=== PATIENT | male | born 1995 | race Two or more races ===

== ENCOUNTER 2025-05-20 19:06 | Inpatient (IN) | payer MEDICAID, SELFPAY ==
[2025-05-20 19:07] VITALS: BMI 37.8
[2025-05-20 19:47] VITALS: BP 162/109; PULSE 88; RESP 20; TEMP 36.9; O2SAT 95
--- NOTE | 2025-05-20 19:53 | XR_ITS ---
Examination: CT maxillofacial, with contrast 2-D sagittal and coronal reconstructions. 3-D reconstructions Date and time of exam:May 20, 20252052 hours INDICATIONS: Orbital redness swelling and pain 1 week CTDI: vol (mGy):35.9 DLP: (mGycm): 840 Technique: Multiple axial images maxillofacial region, 3.0 mm slice thickness, post intravenous injection 50 cc Isovue 370. 2-D sagittal coronal reconstructions. 3-D reconstructions Low dose protocols were performed. One or more of the following dose reduction techniques were used; automated exposure control, adjustment of the mA and/or KV according to patient size, use of iterative reconstruction technique. Findings: Soft tissue swelling medial to the right nasal bone and anterior to the right optic globe The optic globes appear intact with no retro-orbital abscess or contusion Mucosal thickening in the nasal airway Soft tissue swelling anterior to the maxillary antrum and mandible but no abscess Right maxillary ethmoid sinus disease IMPRESSION: Extensive facial cellulitis pattern, no dave abscess
[2025-05-20 20:08] LABS: Basophils # (Auto) 0.1 Thou/mm3 (0.0-0.2); Basophils % (Auto) 1 % (0-2.5); Eosinophils # (Auto) 0.2 Thou/mm3 (0.0-0.5); Eosinophils % (Auto) 1 % (0-10); Hematocrit 41.8 % (41.0-53.0); Hemoglobin 14.4 g/dL (13.5-16.0); Immature Granulocytes Auto 0.06 Thou/mm3 (0.00-0.00); Lymphocytes # (Auto) 3.1 Thou/mm3 (1.0-4.8); Lymphocytes % (Auto) 18 % (10-50); Mean Corpuscular HGB Conc 34.4 g/dl (31.0-37.0); Mean Corpuscular Hemoglobin 30.3 pg (25.0-35.0); Mean Corpuscular Volume 88 fL (80-100); Monocytes # (Auto) 1.0 Thou/mm3 (0.0-0.8); Monocytes % (Auto) 6 % (0-12); Neutrophils # (Auto) 12.7 Thou/mm3 (1.8-7.7); Neutrophils % (Auto) 74 % (37-80); Nucleated Red Blood Cell # 0.00 Thou/mm3 (0.00-0.00); Nucleated Red Blood Cell % 0 /100 WBC (0); Platelet Count 310 Thou/mm3 (140-440); RDW Standard Deviation 41.7 fL (35.1-43.9); Red Blood Count 4.76 Miln/mm3 (4.50-5.90); White Blood Count 17.2 Thou/mm3 (3.8-10.6)
--- NOTE | 2025-05-20 20:12 | PD.EDDENTL ---
ED Dental RME/HPI General Chief complaint: Dental/Oral/Throat Stated complaint: R UPPER JAW PAIN Time Seen by Provider: 05/20/25 19:52 Arrival date/time: 05/20/25 19:06 30M with history of drug use (marijuana; cocaine 1 month ago) presents to ED with R facial/dental swelling/pain. Patient states the swelling was bad enough, where he had some R blurry vision earlier today. Patient denies AMS, seizures, N/V, and dizziness. Limitations: no limitations Related Data Home Medications ?Medication ?Instructions ?Recorded ?Confirmed No Known Home Medications 09/05/22 09/05/22 Allergies Allergy/AdvReac Type Severity Reaction Status Date / Time ampicillin (From AdvReac Severe Anaphylaxis Verified 05/20/25 21:07 ampicillin-sulbactam) sulbactam (From AdvReac Severe Anaphylaxis Verified 05/20/25 21:07 ampicillin-sulbactam) Review of Systems Review of Systems Systems Reviewed: All systems reviewed, normal except as documented Constitutional Constitutional: Reports system reviewed and no additional complaints, except as documented, Denies fever(s) and Denies headache(s) Eyes Eyes: Reports as per HPI and Reports blurry vision ENT Ears, Nose, Mouth, and Throat: Reports as per HPI, Reports dental pain, Denies disequilibrium, Reports facial pain and Denies headache(s) Cardiovascular Cardiovascular: Reports system reviewed and no additional complaints, except as documented, Denies chest pain and Denies dyspnea Respiratory Respiratory: Reports system reviewed and no additional complaints, except as documented, Denies cough and Denies dyspnea Gastrointestinal Gastrointestinal: Reports system reviewed and no additional complaints, except as documented, Denies abdominal pain, Denies nausea and Denies vomiting Neurologic Neurologic: Reports system reviewed and no additional complaints, except as documented, Denies confusion, Denies disequilibrium and Denies headache(s) Psychiatric Psychiatric: Denies confusion Past Medical History Past Medical History CARDIAC: Negative Congestive Heart Failure RESPIRATORY: Negative Chronic Obstructive Pulmonary Disease (COPD) GENITOURINARY: Negative Renal Disease ENDOCRINE: Negative Diabetes Mellitus Type 1 or Diabetes Mellitus Type 2 PSYCHO/SOCIAL: Positive Depression and Anxiety Social History SMOKING STATUS: Current every day smoker ED Exam General Limitations: Present no limitations General appearance: Present alert and in no apparent distress Head Head exam: Present atraumatic Eye Eye exam: Present normal appearance, PERRL and EOMI ENT ENT exam: Present mucous membranes moist Expanded ENT Exam External ear exam: Present other (R facial swelling/tenderness) Neck Neck exam: Present normal inspection, full ROM and trachea midline Chest Chest inspection: Present normal inspection and symmetric chest wall rise Respiratory Respiratory exam: Present normal lung sounds bilaterally Cardiovascular Cardiovascular exam: Present regular rate, normal rhythm and normal heart sounds Abdominal Exam Abdominal exam: Present soft and normal bowel sounds Extremities Exam Extremities exam: Present normal inspection and full ROM Back Exam Back exam: Present normal inspection and full ROM Neurological Exam Neurological exam: Present alert, oriented X3 and CN II-XII intact Psychiatric Psychiatric exam: Present normal affect and normal mood Skin Skin exam: Present warm, dry, intact and normal color Course Quality Measures none Orders Category Date Time Status COVID-19 Screening Questionnaire NOW Care 05/20/25 22:[address] Screening NOW Care 05/20/25 19:53 Active Decision to Admit X1 Care 05/20/25 22:30 Completed Insert IV NOW Care 05/20/25 19:[address] facial bones w con Stat Exams 05/20/25 19:53 Completed CBC Stat Lab 05/20/25 20:00 Completed CMP [Comprehensive Metabolic Panel] Stat Lab 05/20/25 20:00 Completed CRP [C-Reactive Protein] Stat Lab 05/20/25 20:00 Completed ESR [Sed Rate (ESR)] Stat Lab 05/20/25 20:00 Completed Ampicillin/Sulbac Inj [Unasyn Inj] 3 gm Med 05/20/25 19:57 Discontinued Sodium Chloride 0.9% (Pop) [NS 0.9% mini bag] 100 ml IV X1 Dexamethasone Inj [Decadron Inj] Med 05/20/25 19:53 Discontinued 10 mg IVP X1 ONE DiphenhydrAMINE INJ [Benadryl Inj] Med 05/20/25 20:46 Discontinued 50 mg IVP X1 ONE EPINEPHrine Inj Abboject Med 05/20/25 20:55 Discontinued 1 mg .ROUTE .STK-MED ONE EPINEPHrine Inj [Adrenalin Inj] Med 05/20/25 20:56 Discontinued 1 mg .ROUTE .STK-MED ONE EPINEPHrine Inj [Adrenalin Inj] Med 05/20/25 20:58 Discontinued 1 mg IM X1 ONE Famotidine Inj [Pepcid Inj] Med 05/20/25 21:03 Discontinued 20 mg IVP X1 ONE Ketorolac Inj [Toradol Inj] Med 05/20/25 20:20 Discontinued 30 mg IVP X1 ONE MethylPREDNISolone.* [SoluMEDROL Inj] Med 05/20/25 21:12 Discontinued 125 mg IVP X1 ONE Sodium Chloride 0.9% 1000 ml [Ns] 1,000 ml Med 05/20/25 21:03 Discontinued IV 999 mls/hr Oxygen Delivery NOW RT 05/20/25 21:03 Active Vital Signs Vital signs: Vital Signs Temperature 98.5 F 05/20/25 19:47 Pulse Rate 88 05/20/25 19:47 Respiratory Rate 20 05/20/25 19:47 Blood Pressure 162/109 H 05/20/25 19:47 Pulse Oximetry (%) 95 05/20/25 19:47 Oxygen Delivery Method Room Air 05/20/25 19:47 O2 at 95% on RA and WNLs Dental / Oral MDM Narrative MDM Narrative:: 30M with history of drug use (marijuana; cocaine 1 month ago) presents to ED with R facial/dental swelling/pain. Patient states the swelling was bad enough, where he had some R blurry vision earlier today. Patient denies AMS, seizures, N/V, and dizziness. Physical exam reveals normal pupil response and EOM. CN II-XII grossly intact. Speech normal. R facial swelling/tenderness, as well as some R lower orbital tenderness. Patient is afebrile, calm, and alert. Moderate leukocytosis. CMP unremarkable. CRP/ESR mildly elevated. After been given Unasyn, patient had an anaphylactic reaction. Patient was stabilized with epi, steroids, and benadryl. CT reveals extensive facial cellulitis including preseptal region. Spoke to IM resident who reports to Dr. Hunter who will accept patient for admission. Patient data External records reviewed:: [facility] previous records Clinical information provided by:: patient Social determinants that could affect healthcare access:: substance use Patient has the following chronic illnesses:: drug use How is presenting disease/condition affected by chronic disease/condition?: exacerbated by Evaluation data The following diagnostics were reviewed and interpreted by me:: lab results and radiology exam(s) Lab and/or radiology exams considered but not ordered:: ordered Interpretation Summary: above Medications / Prescriptions Medications or Prescriptions considered but not ordered:: ordered Medication administrations:: Medication Administration History Acetaminophen (Acetaminophen 325 Mg Tablet) 650 mg PO Q6H PRN PRN Reason: PAIN SCALE 1-3 (mild Stop: 06/19/25 22:52 Chlordiazepoxide HCl (Chlordiazepoxide Hcl 25 Mg Capsule) 50 mg PO Q6HR PRN PRN Reason: CIWA> 9 Stop: 05/24/25 00:12 Folic Acid (Folic Acid 1 Mg Tablet) 1 mg PO QDAY [facility] Stop: 06/20/25 08:59 Heparin Sodium (Porcine) (Heparin Sod Inj 5000 Unit/Ml Vial) 5,000 unit SC Q12HR [facility] Stop: 06/04/25 08:59 Levofloxacin/Dextrose (Levaquin Ivpb) 750 mg in 150 mls @ 100 mls/hr IV QDAY [facility] Stop: 05/28/25 08:59 Ketorolac Tromethamine (Ketorolac Inj 30 Mg/Ml Vial) 30 mg IVP Q6HR PRN PRN Reason: Pain 4-6 Stop: 05/25/25 23:03 Lorazepam (Lorazepam 0.5 Mg Tablet) 0.5 mg PO Q4HR PRN PRN Reason: CIWA Score 2-6 Stop: 05/26/25 00:11 Lorazepam (Lorazepam 0.5 Mg Tablet) 1 mg PO Q4HR PRN PRN Reason: CIWA SCORE 7-11 Stop: 05/26/25 00:11 Lorazepam (Lorazepam 0.5 Mg Tablet) 2 mg PO Q4HR PRN PRN Reason: CIWA SCORE 12-15 Stop: 05/26/25 00:11 Ondansetron HCl (Ondansetron Inj 2 Mg/Ml Inj 2 Ml) 4 mg IVP Q6H PRN; Protocol PRN Reason: NAUSEA OR VOMITING Stop: 06/19/25 22:52 Thiamine HCl (Thiamine 100 Mg Tablet) 100 mg PO QDAY [facility] Stop: 06/20/25 08:59 Discontinued Medications Dexamethasone Sodium Phosphate (Dexamethasone Sod Phos Inj 10 Mg/Ml Vial) 10 mg IVP X1 ONE Stop: 05/20/25 19:54 Last Admin: 05/20/25 20:25 Dose: 10 mg Documented By: LAUREN Diphenhydramine HCl (Diphenhydramine Inj 50 Mg/Ml Vial) 50 mg IVP X1 ONE Stop: 05/20/25 20:47 Last Admin: 05/20/25 21:02 Dose: 50 mg Documented By: MARYJANE Epinephrine HCl (Epinephrine Inj 1 Mg/Ml Amp) 1 mg IM X1 ONE Stop: 05/20/25 20:59 Last Admin: 05/20/25 21:03 Dose: 1 mg Documented By: MARYJANE Epinephrine HCl (Epinephrine Inj 0.1 Mg/Ml Syringe 10ml) Confirm Administered Dose 1 mg .ROUTE .STK-MED ONE Stop: 05/20/25 20:56 Last Admin: 05/20/25 21:08 Dose: Not Given Documented By: MARYJANE Non-Admin Reason: Override Medication Epinephrine HCl (Epinephrine Inj 1 Mg/Ml Amp) Confirm Administered Dose 1 mg .ROUTE .STK-MED ONE Stop: 05/20/25 20:57 Last Admin: 05/20/25 21:08 Dose: Not Given Documented By: MARYJANE Non-Admin Reason: Override Medication Famotidine (Famotidine Inj 10 Mg/Ml Vial 2 Ml) 20 mg IVP X1 ONE Stop: 05/20/25 21:04 Last Admin: 05/20/25 21:13 Dose: 20 mg Documented By: MARYJANE Ampicillin Sodium/Sulbactam (Sodium 3 gm/ Sodium Chloride) 100 mls @ 200 mls/hr IV X1 ONE Stop: 05/20/25 19:58 Last Infusion: 05/20/25 20:54 Dose: Infused Documented By: Admin: 05/20/25 20:24 Dose: 200 mls/hr Documented By: LAUREN Sodium Chloride (Ns) 1,000 mls @ 999 mls/hr IV .Q1H1M ONE Stop: 05/20/25 22:03 Last Infusion: 05/20/25 23:46 Dose: Infused Documented By: Admin: 05/20/25 21:10 Dose: 999 mls/hr Documented By: MARYJANE Ketorolac Tromethamine (Ketorolac Inj 30 Mg/Ml Vial) 30 mg IVP X1 ONE Stop: 05/20/25 20:21 Last Admin: 05/20/25 20:26 Dose: 30 mg Documented By: LAUREN Methylprednisolone Sodium Succinate (Methylprednisolone Sod Succ 62.5 Mg/Ml 2ml Vial) 125 mg IVP X1 ONE Stop: 05/20/25 21:13 Last Admin: 05/20/25 21:17 Dose: 125 mg Documented By: MARYJANE above Consultations Consultation(s) initiated? (list below): Yes Diagnosis Dental Differential Diagnosis: gingival abscess, dental caries, toothache, dental abscess, fracture of tooth, aphthous ulcer and other (orbital cellulitis, periorbital cellulitis) Most likely diagnosis given after review of the tests above:: preseptal cellulitis, anaphylaxis Admission Indicated Admission indicated?: indicated Admission Request Was there a request for admission?: Yes Admission Attestation Admission request attestation: Discussed case with [Dr. Hunter] from Hospitalist service regarding admission. Discussed patients ED course, exam findings, labs, and radiology results. The Hospitalist [agrees] to accept the patient for admission. Disposition Plan Disposition Plan: Admit Discharge Plan Plan Patient Disposition: Admit Acute Care w/in Hospital Discharge Disposition comment: MED TELE Problem List Clinical Impression: Preseptal cellulitis, Anaphylactic reaction
[2025-05-20] MEDS: AMPICILLIN/SULBAC INJ 3 GM in SODIUM CHLORIDE 0.9% (POP) 100 ML IV (20:24)
[2025-05-20] MEDS: DEXAMETHASONE SOD PHOS INJ 10 MG/ML VIAL IVP (20:25)
[2025-05-20] MEDS: KETOROLAC INJ 30 MG/ML VIAL IVP (20:26)
[2025-05-20 20:32] LABS: Alanine Aminotransferase 28 U/L (10-49); Albumin, Serum 4.9 gm/dL (3.5-5.0); Albumin/Globulin Ratio 1.5 (1.2-2.2); Alkaline Phosphatase 98 U/L (46-116); Anion Gap 6 (7-16); Aspartate Amino Transferase 24 U/L (0-34); BUN/Creatinine Ratio 8 Ratio (12-20); Bilirubin,Total 0.2 mg/dL (0.3-1.2); Blood Urea Nitrogen 9 mg/dL (9-23); C-Reactive Protein 2.2 mg/dL (0.0-0.9); Calcium 9.3 mg/dL (8.3-10.6); Calcium (Corrected) 9.3 mg/dL (8.5-10.1); Carbon Dioxide 28.1 mMol/L (20.0-31.0); Chloride 105 mMol/L (98-107); Creatinine (Component) 1.1 mg/dL (0.6-1.3); Estimated Creatinine Clearance 124.5 mL/min (>60); Globulin 3.3 gm/dL (2.3-3.5); Glucose 99 mg/dL (74-106); Osmolality,Calculated 276 (275-295); Potassium 4.1 mMol/L (3.4-5.1); Sodium 139 mMol/L (136-145); Total Protein 8.2 gm/dL (5.7-8.2); eGFR > 60 See Note
[2025-05-20 20:35] LABS: Sed Rate (ESR) 40 mm/hr (0-15)
[2025-05-20 20:51] VITALS: PULSE 254; O2SAT 80
[2025-05-20 21:03] VITALS: BP 146/7; PULSE 125
[2025-05-20] MEDS: EPINEPHrine INJ 1 MG/ML AMP IM (21:03)
--- NOTE | 2025-05-20 21:05 | PC.NURSE ---
Upon administration of unasyn, pt denied any known allergies. Pt began to develop swelling to lower lip at end of infusion. Provider made aware by Carol. Pt's swelling continued to progress. Pt moved to main ER to be given Epi.
[2025-05-20] MEDS: SODIUM CHLORIDE 0.9% 1000 ML 1,000 ML 999 ML IV (21:10)
[2025-05-20] MEDS: FAMOTIDINE INJ 10 MG/ML VIAL 2 ML 20 MG IVP (21:13)
[2025-05-20] MEDS: MethylPREDNISolone SOD SUCC 62.5 MG/ML 2ML VIAL 125 MG IVP (21:17)
[2025-05-20 21:20] VITALS: BP 146/72; PULSE 96; RESP 20; O2SAT 99
[2025-05-20 21:48] VITALS: BP 145/79; PULSE 90; RESP 18; O2SAT 98
[2025-05-20 22:01] VITALS: BP 136/82; PULSE 87; RESP 17; O2SAT 99
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
[2025-05-21] VITALS (8 sets, daily range): BP systolic 102–138; BP diastolic 68–102; PULSE 57–87; RESP 14–19; TEMP 35.9–36.8; O2SAT 94–99; BMI 38.2
[2025-05-21 01:31] LABS: Amphetamine/Methamp Scrn,U Negative (Negative); Barbiturate Screen,Urine Negative (Negative); Benzodiazepines Screen,Urine Negative (Negative); Benzoylecgonine Screen, Ur Negative (Negative); Fentanyl Screen,Urine Negative (Negative); Opiate Screen,Urine Negative (Negative); THC Screen,Urine Positive (Negative)
[2025-05-21 04:59] LABS: Basophils # (Auto) 0.0 Thou/mm3 (0.0-0.2); Basophils % (Auto) 0 % (0-2.5); Eosinophils # (Auto) 0.0 Thou/mm3 (0.0-0.5); Eosinophils % (Auto) 0 % (0-10); Hematocrit 39.6 % (41.0-53.0); Hemoglobin 13.6 g/dL (13.5-16.0); Immature Granulocytes Auto 0.07 Thou/mm3 (0.00-0.00); Lymphocytes # (Auto) 0.8 Thou/mm3 (1.0-4.8); Lymphocytes % (Auto) 6 % (10-50); Mean Corpuscular HGB Conc 34.3 g/dl (31.0-37.0); Mean Corpuscular Hemoglobin 30.4 pg (25.0-35.0); Mean Corpuscular Volume 89 fL (80-100); Monocytes # (Auto) 0.1 Thou/mm3 (0.0-0.8); Monocytes % (Auto) 1 % (0-12); Neutrophils # (Auto) 13.1 Thou/mm3 (1.8-7.7); Neutrophils % (Auto) 93 % (37-80); Nucleated Red Blood Cell # 0.00 Thou/mm3 (0.00-0.00); Nucleated Red Blood Cell % 0 /100 WBC (0); Platelet Count 284 Thou/mm3 (140-440); RDW Standard Deviation 42.6 fL (35.1-43.9); Red Blood Count 4.47 Miln/mm3 (4.50-5.90); White Blood Count 14.1 Thou/mm3 (3.8-10.6)
[2025-05-21 06:01] LABS: Anion Gap 6 (7-16); BUN/Creatinine Ratio 8 Ratio (12-20); Blood Urea Nitrogen 8 mg/dL (9-23); Calcium 9.3 mg/dL (8.3-10.6); Carbon Dioxide 23.6 mMol/L (20.0-31.0); Cardiac Risk Estimate 3.5 RATIO (4.0-6.7); Chloride 111 mMol/L (98-107); Cholesterol 181 mg/dL (132-200); Creatinine (Component) 1.0 mg/dL (0.6-1.3); Estimated Creatinine Clearance 137.9 mL/min (>60); Glucose 151 mg/dL (74-106); HDL Cholesterol 51 mg/dL (40-60); LDL Cholesterol,Calculated 120 mg/dL (0-130); Magnesium 1.6 mg/dL (1.6-2.6); Osmolality,Calculated 282 (275-295); Potassium 3.7 mMol/L (3.4-5.1); Sodium 141 mMol/L (136-145); Triglycerides 49 mg/dL (30-150); eGFR > 60 See Note
[2025-05-21 06:20] LABS: Phosphorous 0.7 mg/dL (2.4-5.1)
[2025-05-21 06:37] LABS: Glucose Estimated Average 108 mg/dL (80-131); Hemoglobin A1C 5.4 % Hgb (4.8-6.0)
--- NOTE | 2025-05-21 07:40 | ESPR_ITS ---
<Statement entered by Any Stanton MD - 05/22/25 16:39> I have reviewed the note and agree with the resident's assessment & plan with exceptions as below. I have personally reviewed labs, imaging, home meds/prior records, examined the patient, formulated and discussed management plan with the IM team. Patient examined at bedside today. Patient continues to improve with pain, no fevers overnight. Will add vancomycin at this time to cover for MRSA and will also add MRSA screen and will de-escalate MRSA coverage once it results. Continuing with IV Levaquin as well. Patient does have some history of dental procedures in the past, will hold off on anaerobic coverage at this time. Continue with antipyretics, IV antibiotics, will hold off and infectious disease consult at this time. Dissipate discharge within the next 24 to 48 hours. Any Stanton, PGY-2 Internal Medicine Documentation for date of: 05/21/25 Subjective Subjective Interval history: Patient was examined at bedside this morning. Today, patient reports he is overall feeling better. He notes that pain is only present if he applies pressure under the eyes. He denies any more episodes of blurry vision. Denies pain with eye movement. He does note a sensation of generalized heaviness after waking up this morning, including the upper extremities bilaterally. However, noted that it has gradually improved over the last few hours. He denies any other concerns at this time. Exam Vital Signs Temp Pulse Resp BP Pulse Ox O2 Del Method O2 Flow Rate 96.7 F L 57 L 15 106/68 95 Room Air 2 05/21/25 04:00 05/21/25 04:00 05/21/25 04:00 05/21/25 04:00 05/21/25 04:00 05/21/25 04:00 05/20/25 22:01 Narrative Exam GENERAL: A&OX3. No acute distress. HEENT: Normocephalic. No scleral icterus. EOMI. No periorbital erythema or swelling present at this time. CV: Regular rate and rhythm. S1 and S2 heard. No murmurs. PULM: No accessory muscle use. CTAB. No wheezing or crackles. ABDOMEN: Soft and non-distended. EXTREMITIES: No lower extremity edema. NEURO: No aphasia. No facial asymmetry. Sensation to upper and lower face present bilaterally, but slightly decreased on right forehead compared to left. Equal sensation bilaterally of upper and lower extremities. Patient able to move bilateral upper extremities, shoulders, and left lower extremity against resistance. Weakness of right lower extremity secondary to history of knee surgery, but at baseline per patient. SKIN: Warm and dry. PSYCH: Cooperative with exam. Detailed Eye Exam Visual acuity: Visual Acuity Visual Acuity Uncorrected [ 20/50 Bilateral] Visual Acuity Uncorrected [ 20/70 Right] Visual Acuity Uncorrected [ 20/70 Left] Objective Labs 05/23/25 04:15 05/23/25 04:15 Labs: Laboratory Results - last 24 hr 05/20/25 05/21/25 05/21/25 20:00 00:49 04:29 WBC 17.2 H 14.1 H RBC 4.76 4.47 L Hgb 14.4 13.6 Hct 41.8 39.6 L MCV 88 89 MCH 30.3 30.4 MCHC 34.4 34.3 RDW Std Deviation 41.7 42.6 Plt Count 310 284 Neut % (Auto) 74 93 H Lymph % (Auto) 18 6 L [place] % (Auto) 6 1 Eos % (Auto) 1 0 Baso % (Auto) 1 0 Neut # (Auto) 12.7 H 13.1 H Lymph # (Auto) 3.1 0.8 L [place] # (Auto) 1.0 H 0.1 Eos # (Auto) 0.2 0.0 Baso # (Auto) 0.1 0.0 Immature Gran # (Auto) 0.06 H 0.07 H Absolute Nucleated RBC 0.00 0.00 Immature Gran % 0 1 H Nucleated RBC % 0 0 ESR 40 H Sodium 139 141 Potassium 4.1 3.7 Chloride 105 111 H Carbon Dioxide 28.1 23.6 Anion Gap 6 L 6 L BUN 9 8 L Creatinine 1.1 1.0 Estim Creat Clear Calc 124.5 137.9 eGFR > 60 > 60 BUN/Creatinine Ratio 8 L 8 L Glucose [address] Glu mg/dL 108 Hemoglobin A1c 5.4 Calculated Osmolality 276 282 Calcium 9.3 9.3 Corrected Calcium 9.3 Phosphorus 0.7 L* Magnesium 1.6 Total Bilirubin 0.2 L AST 24 ALT 28 Alkaline Phosphatase 98 C-Reactive Prot, Quant 2.2 H Total Protein 8.2 Albumin 4.9 Globulin 3.3 Albumin/Globulin Ratio 1.5 Triglycerides 49 Cholesterol 181 LDL Cholesterol, Calc 120 HDL Cholesterol 51 Cholesterol/HDL Ratio 3.5 L Urine Opiates Screen Negative Urine Fentanyl Screen Negative Ur Barbiturates Screen Negative U Amphetamin/Meth Scrn Negative U Benzodiazepines Scrn Negative U Cocaine Metab Screen Negative U Marijuana (THC) Screen Positive A Quality Measures Quality Measures none Assessment & Plan Assessment Current Active Medications: Generic Name Dose Route Start Last Admin Trade Name Freq PRN Reason Stop Dose Admin Acetaminophen 650 mg 05/20/25 22:53 Acetaminophen 325 Mg Tablet PO 06/19/25 22:52 Q6H PRN PAIN SCALE 1-3 (mild Folic Acid 1 mg 05/21/25 09:00 Folic Acid 1 Mg Tablet PO 06/20/25 08:59 QDAY CECIL Heparin Sodium (Porcine) 5,000 unit 05/21/25 09:00 Heparin Sod Inj 5000 Unit/Ml Vial SC 06/04/25 08:59 Q12HR CECIL Levofloxacin/Dextrose 750 mg in 150 mls @ 100 mls/hr 05/21/25 09:00 Levaquin Ivpb IV 05/28/25 08:59 QDAY CECIL Potassium Phosphate 15 mmol in 250 mls @ 62.5 mls/hr 05/21/25 07:00 Pot Phos 15 Mmol In Ns 250 Ml IV 05/21/25 14:59 Q4H CECIL Ketorolac Tromethamine 30 mg 05/20/25 23:04 Ketorolac Inj 30 Mg/Ml Vial IVP 05/25/25 23:03 Q6HR PRN Pain 4-6 Lorazepam 0.5 mg 05/21/25 00:12 Lorazepam 0.5 Mg Tablet PO 05/26/25 00:11 Q4HR PRN CIWA Score 2-6 Lorazepam 1 mg 05/21/25 00:12 Lorazepam 0.5 Mg Tablet PO 05/26/25 00:11 Q4HR PRN CIWA SCORE 7-11 Lorazepam 2 mg 05/21/25 00:12 Lorazepam 0.5 Mg Tablet PO 05/26/25 00:11 Q4HR PRN CIWA SCORE 12-15 Ondansetron HCl 4 mg 05/20/25 22:53 Ondansetron Inj 2 Mg/Ml Inj 2 Ml IVP 06/19/25 22:52 Q6H PRN NAUSEA OR VOMITING Protocol Thiamine HCl 100 mg 05/21/25 09:00 Thiamine 100 Mg Tablet PO 06/20/25 08:59 QDAY CECIL Plan Assessment 30-year-old male with past medical history of polysubstance use disorder, alcohol use disorder, morbid obesity presenting to the ED on 05/20 with episode of facial pain along with blurriness will be admitted for the management of preseptal cellulitis and will be treated with IV antibiotics and close monitoring. #Preseptal cellulitis, improving #Leukocytosis, improvement Overall improving with IV Levaquin. In the ED, patient was given Unasyn and started developing anaphylactoid reaction, epinephrine, steroid and Benadryl was given which subsided reaction. There is less concern for orbital cellulitis as there is no persistent visual changes, pain with eye movement or exudation/erythema. Could be 2/2 to cocaine use. Could also be associated with poor dentition resulting in infection. Patient had denied any recent facial or eye trauma. WBC of 17.2 initially. 14.[address] shows extensive facial cellulitis pattern with no dave abscess, soft tissue swelling medial to the right nasal bone and anterior to the right optic globe, no retro-orbital abscess is noted, soft tissue swelling anterior to the maxillary antrum and mandible along with right maxillary ethmoid sinus disease. Plan: - IV Levaquin as patient is allergic to penicillins. Plan to switch to Levaquin 500 mg po QD at discharge. - Added vancomycin for MRSA coverage, pending rule out. - Monitor for any acute changes in vision or pain #Generalized Weakness #Hypophosphatemia, improving Suspect generalized heavy sensation to be secondary to hypophosphatemia. Less concern for stroke, given symptoms have been gradually improving since this morning and exam overall unremarkable, except for slight decrease in sensation of right forehead compared to left. Sensation of lower face and extremities otherwise present and equal bilaterally. No obvious weakness of upper extremities or shoulders on exam. Plan: - Will replete phosphate as needed. - Check vitamin D level for workup of hypophosphatemia. #Polysubstance use disorder #Alcohol use disorder Urine tox screen positive for marijuana and alcohol. Per patient, last alcoholic drink was on Sunday. CIWA score of 0 today and patient without symptoms of alcohol withdrawal. Patient admits to using marijuana daily, drinking 12 packs on Fridays. Possible cocaine use per ED provider, but negative on tox screen. Plan: - CIWA protocol - Thiamine and folic acid supplementation - Counseled on complete cessation from illicit drugs and alcohol #Morbid obesity Patient has a BMI of 37.8. Has concerning family history of [place], brother had strokes x2 with first at the age of 32. Lipid panel was unremarkable. A1c 5.4%. Plan: - Counseled on proper nutrition and diet exercise #Nicotine dependence Patient smokes 1 pack a day for the past 12 years. Discussed smoking cessation and offered nicotine patch, but patient declined at this time. Health Maintenance: Lines: PIV Diet: Cardiac Bowel: Senna as needed GI prophylaxis: Not needed DVT prophylaxis: SCD Dispo: IV antibiotics for preseptal cellulitis Code: Full Patient seen and care discussed with my attending physician, Dr. Jones and my senior resident, Dr. Romy Dash, [facility] [place] Attending Provider Attestation/Addendum Admitted for facila pain and swellimg. He has discomfort which improved since admission. BP stable. No dizzinesss and no headache. Plan discussed with housestaff and medical student.
[2025-05-21] MEDS: HEPARIN SOD INJ 5000 UNIT/ML VIAL SC ×2 (08:20→20:21)
[2025-05-21] MEDS: NAPH,KPH MBDB 1 PACKET (1.5 GM) 2 PACKET PO ×2 (08:21→15:09)
[2025-05-21] MEDS: POT PHOS 15 mMol in NS 250 ML 15 MMOL/250 ML BAG 62.5 MMOL IV ×2 (08:21→11:57)
[2025-05-21] MEDS: FOLIC ACID 1 MG TABLET PO (08:21)
[2025-05-21] MEDS: THIAMINE 100 MG TABLET PO (08:21)
[2025-05-21] MEDS: LEVOFLOXACIN/D5W 750MG IVPB 750 MG/150 ML BAG 100 MG IV (08:22)
[2025-05-21] MEDS: Vancomycin Inj 1,500 MG in SODIUM CHLORIDE 0.9% 500 ML 500 ML 120 MG IV ×2 (11:57→22:24)
--- NOTE | 2025-05-21 12:57 | PD.RESDS ---
Planned Discharge Date 05/21/25 DS: Providers Provider Date of admission: 05/20/25 22:53 Primary care physician: Physician No Primary/Family Admitting Provider: Lionel Hunter MD Attending Provider on Admission: Pacheco Jones MD Attending Provider on DC: Pacheco Jones MD Discharging Provider: Pacheco Jones MD Hospital Course Hospital Course Hospital course: Patient is a 30-year-old male with past medical history of substance use disorder, alcohol use disorder, and morbid obesity who presented to the ED on 05/20 for dental and facial pain associated with intermittent blurry vision onset 05/19. He was found to have preseptal cellulitis on CT. Initially treated with Unasyn in ED but developed anaphylactic reaction, so switched to Levaquin 750 mg IV. He was then admitted for treatment of facial cellulitis. Today, patient reports he is overall feeling better. He notes that pain is only present if he applies pressure under the eyes. He denies any more episodes of blurry vision. Denies pain with eye movement. He does note a sensation of generalized heaviness after waking up this morning, including the upper extremities bilaterally. However, noted that it has gradually improved over the last few hours. Also discussed smoking cessation with patient, but patient declined at this time. He denies any other concerns at this time. Patient is stable at time of discharge. Will discharge patient with Discharge instructions: #Problem List #Preseptal cellulitis #Leukocytosis #Hypophosphatemia #Polysubstance use disorder #Alcohol use disorder #Morbid obesity #Nicotine dependence Case discussed with my attending Dr. Jones, and senior resident, Dr. Romy Dash, OMS4 Time Spent with Patient Time attestation: Total time spent providing and/or coordinating discharge services: Time spent: Greater than 30 minutes Exam Vital Signs Temp Pulse Resp BP Pulse Ox O2 Del Method O2 Flow Rate 97.2 F 66 14 118/71 99 Room Air 2 05/21/25 08:00 05/21/25 08:00 05/21/25 08:00 05/21/25 08:00 05/21/25 08:00 05/21/25 08:00 05/20/25 22:01 Narrative Exam GENERAL: A&OX3. No acute distress. HEENT: Normocephalic. No scleral icterus. EOMI. No periorbital erythema present. CV: Regular rate and rhythm. S1 and S2 heard. No murmurs. PULM: No accessory muscle use. CTAB. No wheezing or crackles. ABDOMEN: Soft and non-distended. EXTREMITIES: No lower extremity edema. NEURO: No aphasia. No facial asymmetry. Sensation to upper and lower face present bilaterally, but slightly decreased on right forehead compared to left. Equal sensation bilaterally of upper and lower extremities. Patient able to move bilateral upper extremities, shoulders, and left lower extremity against resistance. Weakness of right lower extremity secondary to history of knee surgery. SKIN: Warm and dry. PSYCH: Cooperative with exam. Detailed Eye Exam Visual acuity: Visual Acuity Visual Acuity Uncorrected [ 20/50 Bilateral] Visual Acuity Uncorrected [ 20/70 Right] Visual Acuity Uncorrected [ 20/70 Left] Discharge Plan Plan Patient Disposition: HOME (Self Care) Patient condition on transfer: Stable Prescriptions/Referrals Prescriptions/Med Rec: No Action No Known Home Medications Referrals: No Primary/Family,Physician [Primary Care Provider] - Patient/Caregiver Discharge Instructions Discharge Activity: activity as tolerated Education Materials: Discharge Instructions for Cellulitis Print Language: Japanese Stand Alone Forms: Claudia Award Info., Patient Portal Info Letter
[2025-05-21 13:31] LABS: Albumin, Serum 4.3 gm/dL (3.5-5.0); Anion Gap 8 (7-16); BUN/Creatinine Ratio 10 Ratio (12-20); Blood Urea Nitrogen 9 mg/dL (9-23); Calcium 9.1 mg/dL (8.3-10.6); Calcium (Corrected) 9.1 mg/dL (8.5-10.1); Carbon Dioxide 23.7 mMol/L (20.0-31.0); Chloride 109 mMol/L (98-107); Creatinine (Component) 0.9 mg/dL (0.6-1.3); Estimated Creatinine Clearance 153.2 mL/min (>60); Glucose 128 mg/dL (74-106); Osmolality,Calculated 281 (275-295); Phosphorous 1.8 mg/dL (2.4-5.1); Potassium 4.4 mMol/L (3.4-5.1); Sodium 141 mMol/L (136-145); eGFR > 60 See Note
[2025-05-21 20:25] LABS: Albumin, Serum 4.4 gm/dL (3.5-5.0); Anion Gap 12 (7-16); BUN/Creatinine Ratio 9 Ratio (12-20); Blood Urea Nitrogen 7 mg/dL (9-23); Calcium 9.6 mg/dL (8.3-10.6); Calcium (Corrected) 9.6 mg/dL (8.5-10.1); Carbon Dioxide 22.1 mMol/L (20.0-31.0); Chloride 110 mMol/L (98-107); Creatinine (Component) 0.8 mg/dL (0.6-1.3); Estimated Creatinine Clearance 172.3 mL/min (>60); Glucose 146 mg/dL (74-106); Osmolality,Calculated 287 (275-295); Phosphorous 3.0 mg/dL (2.4-5.1); Potassium 3.7 mMol/L (3.4-5.1); Sodium 144 mMol/L (136-145); eGFR > 60 See Note
[2025-05-22] VITALS (12 sets, daily range): BP systolic 120–149; BP diastolic 72–85; PULSE 61–92; RESP 14–18; TEMP 36.1–36.5; O2SAT 98–99
[2025-05-22 06:13] LABS: Basophils # (Auto) 0.0 Thou/mm3 (0.0-0.2); Basophils % (Auto) 0 % (0-2.5); Eosinophils # (Auto) 0.0 Thou/mm3 (0.0-0.5); Eosinophils % (Auto) 0 % (0-10); Hematocrit 38.0 % (41.0-53.0); Hemoglobin 12.8 g/dL (13.5-16.0); Immature Granulocytes Auto 0.08 Thou/mm3 (0.00-0.00); Lymphocytes # (Auto) 3.0 Thou/mm3 (1.0-4.8); Lymphocytes % (Auto) 16 % (10-50); Mean Corpuscular HGB Conc 33.7 g/dl (31.0-37.0); Mean Corpuscular Hemoglobin 30.0 pg (25.0-35.0); Mean Corpuscular Volume 89 fL (80-100); Monocytes # (Auto) 1.2 Thou/mm3 (0.0-0.8); Monocytes % (Auto) 7 % (0-12); Neutrophils # (Auto) 14.2 Thou/mm3 (1.8-7.7); Neutrophils % (Auto) 77 % (37-80); Nucleated Red Blood Cell # 0.00 Thou/mm3 (0.00-0.00); Nucleated Red Blood Cell % 0 /100 WBC (0); Platelet Count 262 Thou/mm3 (140-440); RDW Standard Deviation 44.0 fL (35.1-43.9); Red Blood Count 4.27 Miln/mm3 (4.50-5.90); White Blood Count 18.5 Thou/mm3 (3.8-10.6)
[2025-05-22 06:40] LABS: Vitamin D 25 Hydroxy Total 20.7 ng/mL (7.3-40.2)
[2025-05-22 06:48] LABS: Alanine Aminotransferase 23 U/L (10-49); Albumin, Serum 4.0 gm/dL (3.5-5.0); Albumin/Globulin Ratio 1.4 (1.2-2.2); Alkaline Phosphatase 70 U/L (46-116); Anion Gap 12 (7-16); Aspartate Amino Transferase 17 U/L (0-34); BUN/Creatinine Ratio 10 Ratio (12-20); Bilirubin,Total 0.2 mg/dL (0.3-1.2); Blood Urea Nitrogen 8 mg/dL (9-23); Calcium 8.7 mg/dL (8.3-10.6); Calcium (Corrected) 8.7 mg/dL (8.5-10.1); Carbon Dioxide 23.2 mMol/L (20.0-31.0); Chloride 110 mMol/L (98-107); Creatinine (Component) 0.8 mg/dL (0.6-1.3); Estimated Creatinine Clearance 172.3 mL/min (>60); Globulin 2.9 gm/dL (2.3-3.5); Glucose 107 mg/dL (74-106); Magnesium 2.0 mg/dL (1.6-2.6); Osmolality,Calculated 287 (275-295); Phosphorous 4.1 mg/dL (2.4-5.1); Potassium 3.7 mMol/L (3.4-5.1); Sodium 145 mMol/L (136-145); Total Protein 6.9 gm/dL (5.7-8.2); eGFR > 60 See Note
[2025-05-22] MEDS: LEVOFLOXACIN/D5W 750MG IVPB 750 MG/150 ML BAG 100 MG IV (08:00)
[2025-05-22] MEDS: FOLIC ACID 1 MG TABLET PO (08:00)
[2025-05-22] MEDS: HEPARIN SOD INJ 5000 UNIT/ML VIAL SC ×2 (08:00→20:49)
[2025-05-22] MEDS: THIAMINE 100 MG TABLET PO (08:01)
[2025-05-22] MEDS: Vancomycin Inj 1,500 MG in SODIUM CHLORIDE 0.9% 500 ML 500 ML 120 MG IV ×2 (09:59→22:44)
--- NOTE | 2025-05-22 14:40 | PC.SS ---
SS met with patient who is alert/oriented. Patient was able to verify demographics. Patient is independent with ADL's. Patient was admitted for facial cellulitis. Patient states he is employed and resides with family. Patient has history of alcohol and cocaine use. Patient states he only drinks beer no hard liquor. Patient has a history of mental illness. Patient confirmed he has bipolar. He recently stopped taking his medication. PCP: Patient states he has not seen a p.c.p. in years. SS recommended the [facility] since he is not established with anyone. D/c plan: return home with family. Alt medical decision maker: mother Oden, . d/c plan: return home alt medical decision maker: mother Oden, transportation: family
--- NOTE | 2025-05-22 17:53 | ESPR_ITS ---
<Statement entered by Any Stanton MD - 05/23/25 16:09> I have reviewed the note and agree with the resident's assessment & plan with exceptions as below. I have personally reviewed labs, imaging, home meds/prior records, examined the patient, formulated and discussed management plan with the IM team. Patient examined at bedside today. Patient continues to improve. Patient continuing with vancomycin and IV Levaquin. Will follow-up with MRSA screen tomorrow which will dictate antibiotic coverage tomorrow. Repeat hematology and chemistry in AM. Any Stanton, PGY-2 Internal Medicine Documentation for date of: 05/22/25 Subjective Subjective Interval history: Patient was examined at bedside this morning. Today, patient reports he is overall feeling better. He notes that pain is only present if he applies pressure under the the right eye near the right maxilofacial sinus. He denies any more episodes of blurry vision. Denies pain with eye movement. Patient reports feeling well rested with no fatigue or weakness. He denies any other concerns at this time. Exam Vital Signs Temp Pulse Resp BP Pulse Ox O2 Del Method O2 Flow Rate 97.1 F 92 18 124/72 98 Room Air 2 05/22/25 15:43 05/22/25 16:00 05/22/25 15:43 05/22/25 15:43 05/22/25 15:43 05/22/25 15:43 05/22/25 12:00 Narrative Exam GENERAL: A&OX3. No acute distress. HEENT: Normocephalic. No scleral icterus. EOMI. No periorbital erythema or swelling present at this time. CV: Regular rate and rhythm. S1 and S2 heard. No murmurs. PULM: No accessory muscle use. CTAB. No wheezing or crackles. ABDOMEN: Soft and non-distended. EXTREMITIES: No lower extremity edema. NEURO: No aphasia. No facial asymmetry. Sensation to upper and lower face present bilaterally, but slightly decreased on right forehead compared to left. Equal sensation bilaterally of upper and lower extremities. Patient able to move bilateral upper extremities, shoulders, and left lower extremity against resistance. Weakness of right lower extremity secondary to history of knee surgery, but at baseline per patient. SKIN: Warm and dry. PSYCH: Cooperative with exam. Detailed Eye Exam Visual acuity: Visual Acuity Visual Acuity Uncorrected [ 20/50 Bilateral] Visual Acuity Uncorrected [ 20/70 Right] Visual Acuity Uncorrected [ 20/70 Left] Objective Labs 05/23/25 04:15 05/23/25 04:15 Labs: Laboratory Results - last 24 hr 05/21/25 05/22/25 19:28 06:03 WBC 18.5 H RBC 4.27 L Hgb 12.8 L Hct 38.0 L MCV 89 MCH 30.0 MCHC 33.7 RDW Std Deviation 44.0 H Plt Count 262 Neut % (Auto) 77 Lymph % (Auto) 16 [place] % (Auto) 7 Eos % (Auto) 0 Baso % (Auto) 0 Neut # (Auto) 14.2 H Lymph # (Auto) 3.0 [place] # (Auto) 1.2 H Eos # (Auto) 0.0 Baso # (Auto) 0.0 Immature Gran # (Auto) 0.08 H Absolute Nucleated RBC 0.00 Immature Gran % 0 Nucleated RBC % 0 Sodium 144 145 Potassium 3.7 D 3.7 Chloride 110 H 110 H Carbon Dioxide 22.1 23.2 Anion Gap 12 12 BUN 7 L 8 L Creatinine 0.8 0.8 Estim Creat Clear Calc 172.3 172.3 eGFR > 60 > 60 BUN/Creatinine Ratio 9 L 10 L Glucose 146 H 107 H Calculated Osmolality 287 287 Calcium 9.6 8.7 Corrected Calcium 9.6 8.7 Phosphorus 3.0 4.1 Magnesium 2.0 Total Bilirubin 0.2 L AST 17 ALT 23 Alkaline Phosphatase 70 D Total Protein 6.9 Albumin 4.4 4.0 Globulin 2.9 Albumin/Globulin Ratio 1.4 25-OH Vitamin D Total 20.7 Quality Measures Quality Measures none Assessment & Plan Assessment Current Active Medications: Generic Name Dose Route Start Last Admin Trade Name Freq PRN Reason Stop Dose Admin Acetaminophen 650 mg 05/20/25 22:53 Acetaminophen 325 Mg Tablet PO 06/19/25 22:52 Q6H PRN PAIN SCALE 1-3 (mild Folic Acid 1 mg 05/21/25 09:00 05/22/25 08:00 Folic Acid 1 Mg Tablet PO 06/20/25 08:59 1 mg QDAY CECIL Administration Heparin Sodium (Porcine) 5,000 unit 05/21/25 09:00 05/22/25 08:00 Heparin Sod Inj 5000 Unit/Ml Vial SC 06/04/25 08:59 5,000 unit Q12HR CECIL Administration Levofloxacin/Dextrose 750 mg in 150 mls @ 100 mls/hr 05/21/25 09:00 05/22/25 08:00 Levaquin Ivpb IV 05/28/25 08:59 100 mls/hr QDAY CECIL Administration Vancomycin HCl 1,500 mg/ 500 mls @ 120 mls/hr 05/21/25 11:00 05/22/25 09:59 Sodium Chloride IV 05/28/25 10:59 120 mls/hr BID@1000,2200 CECIL Administration Protocol Ketorolac Tromethamine 30 mg 05/20/25 23:04 Ketorolac Inj 30 Mg/Ml Vial IVP 05/25/25 23:03 Q6HR PRN Pain 4-6 Lorazepam 0.5 mg 05/21/25 00:12 Lorazepam 0.5 Mg Tablet PO 05/26/25 00:11 Q4HR PRN CIWA Score 2-6 Lorazepam 1 mg 05/21/25 00:12 Lorazepam 0.5 Mg Tablet PO 05/26/25 00:11 Q4HR PRN CIWA SCORE 7-11 Lorazepam 2 mg 05/21/25 00:12 Lorazepam 0.5 Mg Tablet PO 05/26/25 00:11 Q4HR PRN CIWA SCORE 12-15 Ondansetron HCl 4 mg 05/20/25 22:53 Ondansetron Inj 2 Mg/Ml Inj 2 Ml IVP 06/19/25 22:52 Q6H PRN NAUSEA OR VOMITING Protocol Pharmacy Consult 1 each 05/21/25 10:45 Vancomycin Pharmacy To Dose 1 Each Each IV 06/20/25 10:44 QDAY PRN CONSULT Thiamine HCl 100 mg 05/21/25 09:00 05/22/25 08:01 Thiamine 100 Mg Tablet PO 06/20/25 08:59 100 mg QDAY CECIL Administration Plan Assessment 30-year-old male with past medical history of polysubstance use disorder, alcohol use disorder, morbid obesity presenting to the ED on 05/20 with episode of facial pain along with blurriness will be admitted for the management of preseptal cellulitis and will be treated with IV antibiotics and close monitoring. Awaiting MRSA lab result for antibiotics to discharge patient. #Preseptal cellulitis, improving #Leukocytosis, improvement Overall improving with IV Levaquin. In the ED, patient was given Unasyn and started developing anaphylactoid reaction, epinephrine, steroid and Benadryl was given which subsided reaction. There is less concern for orbital cellulitis as there is no persistent visual changes, pain with eye movement or exudation/erythema. Could be 2/2 to cocaine use. Could also be associated with poor dentition resulting in infection. Patient had denied any recent facial or eye trauma. WBC of 17.2 initially. 14.[address] shows extensive facial cellulitis pattern with no dave abscess, soft tissue swelling medial to the right nasal bone and anterior to the right optic globe, no retro-orbital abscess is noted, soft tissue swelling anterior to the maxillary antrum and mandible along with right maxillary ethmoid sinus disease. Plan: - IV Levaquin as patient is allergic to penicillins. Plan to switch to Levaquin 500 mg po QD at discharge. - Added vancomycin for MRSA coverage, pending rule out. - Monitor for any acute changes in vision or pain - FUP MRSA screen #Generalized Weakness #Hypophosphatemia, improving Suspect generalized heavy sensation to be secondary to hypophosphatemia. Less concern for stroke, given symptoms have been gradually improving since this morning and exam overall unremarkable, except for slight decrease in sensation of right forehead compared to left. Sensation of lower face and extremities otherwise present and equal bilaterally. No obvious weakness of upper extremities or shoulders on exam. Plan: - Will replete phosphate as needed. - Check vitamin D level for workup of hypophosphatemia. #Polysubstance use disorder #Alcohol use disorder Urine tox screen positive for marijuana and alcohol. Per patient, last alcoholic drink was on Sunday. CIWA score of 0 today and patient without symptoms of alcohol withdrawal. Patient admits to using marijuana daily, drinking 12 packs on Fridays. Possible cocaine use per ED provider, but negative on tox screen. Plan: - CIWA protocol - Thiamine and folic acid supplementation - Counseled on complete cessation from illicit drugs and alcohol #Morbid obesity Patient has a BMI of 37.8. Has concerning family history of [place], brother had strokes x2 with first at the age of 32. Lipid panel was unremarkable. A1c 5.4%. Plan: - Counseled on proper nutrition and diet exercise #Nicotine dependence Patient smokes 1 pack a day for the past 12 years. Discussed smoking cessation and offered nicotine patch, but patient declined at this time. Health Maintenance: Lines: PIV Diet: Cardiac Bowel: Senna as needed GI prophylaxis: Not needed DVT prophylaxis: SCD Dispo: IV antibiotics for preseptal cellulitis Code: Full Patient seen and reviewed with attending Dr. Ellis and supervising resident Dr. Romy Spivey MD PGY-1 Attending Provider Attestation/Addendum Amberly, Ceci Ellis, , attest that I was physically present for the kline portions of the service and evaluated the patient with the resident and I reviewed and discussed the case with the resident and agree with the resident's findings and plans of care as documented above Patient seen eval this a.m. He complains of some pain under his right eye, but no edema or erythema. Mild tenderness to palpation of right sinus area. Patient has been afebrile. Pending MRSA screen. Patient has been doing well on levofloxacin and vancomycin. He denies any history of trauma, but did use cocaine prior to onset of symptoms. He denies any previous episodes of preseptal cellulitis in the past. Patient is able to move his right eye without issue. Anticipate discharge within the next 24 hours to further narrow antibiotic coverage based off MRSA screen. Patient continues to have leukocytosis, likely secondary to steroid administration given in the ER due to anaphylactic reaction to penicillin.
[2025-05-22 22:32] LABS: Vancomycin,Trough 8.7 mcg/mL (5.0-10.0)
[2025-05-23] VITALS: BP 144/74; PULSE 67; RESP 20; TEMP 36.4; O2SAT 98
[2025-05-23 04:00] VITALS: BP 127/72; PULSE 53; RESP 20; TEMP 36.6; O2SAT 98
[2025-05-23 04:39] VITALS: PULSE 56
[2025-05-23 05:27] LABS: Basophils # (Auto) 0.1 Thou/mm3 (0.0-0.2); Basophils % (Auto) 1 % (0-2.5); Eosinophils # (Auto) 0.1 Thou/mm3 (0.0-0.5); Eosinophils % (Auto) 1 % (0-10); Hematocrit 36.6 % (41.0-53.0); Hemoglobin 12.3 g/dL (13.5-16.0); Immature Granulocytes Auto 0.04 Thou/mm3 (0.00-0.00); Lymphocytes # (Auto) 4.9 Thou/mm3 (1.0-4.8); Lymphocytes % (Auto) 44 % (10-50); Mean Corpuscular HGB Conc 33.6 g/dl (31.0-37.0); Mean Corpuscular Hemoglobin 30.4 pg (25.0-35.0); Mean Corpuscular Volume 91 fL (80-100); Monocytes # (Auto) 0.8 Thou/mm3 (0.0-0.8); Monocytes % (Auto) 7 % (0-12); Neutrophils # (Auto) 5.1 Thou/mm3 (1.8-7.7); Neutrophils % (Auto) 46 % (37-80); Nucleated Red Blood Cell # 0.00 Thou/mm3 (0.00-0.00); Nucleated Red Blood Cell % 0 /100 WBC (0); Platelet Count 249 Thou/mm3 (140-440); RDW Standard Deviation 44.6 fL (35.1-43.9); Red Blood Count 4.04 Miln/mm3 (4.50-5.90); White Blood Count 11.0 Thou/mm3 (3.8-10.6)
[2025-05-23 05:59] LABS: Alanine Aminotransferase 24 U/L (10-49); Albumin, Serum 3.7 gm/dL (3.5-5.0); Albumin/Globulin Ratio 1.5 (1.2-2.2); Alkaline Phosphatase 78 U/L (46-116); Anion Gap 10 (7-16); Aspartate Amino Transferase 18 U/L (0-34); BUN/Creatinine Ratio 10 Ratio (12-20); Bilirubin,Total < 0.2 mg/dL (0.3-1.2); Blood Urea Nitrogen 9 mg/dL (9-23); Calcium 8.5 mg/dL (8.3-10.6); Calcium (Corrected) 8.7 mg/dL (8.5-10.1); Carbon Dioxide 27.5 mMol/L (20.0-31.0); Chloride 108 mMol/L (98-107); Creatinine (Component) 0.9 mg/dL (0.6-1.3); Estimated Creatinine Clearance 153.2 mL/min (>60); Globulin 2.4 gm/dL (2.3-3.5); Glucose 96 mg/dL (74-106); Magnesium 1.5 mg/dL (1.6-2.6); Osmolality,Calculated 287 (275-295); Phosphorous 4.1 mg/dL (2.4-5.1); Potassium 3.4 mMol/L (3.4-5.1); Sodium 145 mMol/L (136-145); Total Protein 6.1 gm/dL (5.7-8.2); eGFR > 60 See Note
[2025-05-23] MEDS: VANCOMYCIN/WATER 1250 MG IVPB 250 ML 120 MG IV (06:40)
[2025-05-23 08:00] VITALS: BP 138/91; PULSE 56; PULSE 68; RESP 16; TEMP 36.1; O2SAT 100
[2025-05-23] MEDS: FOLIC ACID 1 MG TABLET PO (08:57)
[2025-05-23] MEDS: THIAMINE 100 MG TABLET PO (08:58)
[2025-05-23] MEDS: HEPARIN SOD INJ 5000 UNIT/ML VIAL SC (08:58)
[2025-05-23] MEDS: LEVOFLOXACIN/D5W 750MG IVPB 750 MG/150 ML BAG 100 MG IV (08:58)
--- NOTE | 2025-05-23 11:39 | ESDS_ITS ---
<Statement entered by Ceci Ellis DO - 05/24/25 14:09> I, Ceci Ellis DO, attest that I was physically present for the kline portions of the service and evaluated the patient with the resident and I reviewed and discussed the case with the resident and agree with the resident's findings and plans of care as documented above Planned Discharge Date 05/23/25 DS: Providers Provider Date of admission: 05/20/25 22:53 Primary care physician: Physician No Primary/Family Admitting Provider: Lionel Hunter MD Attending Provider on Admission: Ceci Ellis DO Attending Provider on DC: Ceci Ellis DO Discharging Provider: Ceci Ellis DO DS: Diagnosis Problem List Completed Was Problem List Reviewed/Reconciled?: Yes Hospital Course Hospital Course Hospital course: 30-year-old male with past medical history of polysubstance use disorder, alcohol use disorder, morbid obesity who was admitted to [facility] on 05/20/2025 for preseptal cellulitis. In the ED, patient presented hypertensive 162/109, regular heart rate, respiratory rate of 20, afebrile satting 95 on room air. Pertinent lab findings include WBC 17.2, hemoglobin 14.4, BUN 9, creatinine 1.1, glucose 99, T. bili 0.2, AST 24, ALT 28, alk phos 98. U tox pending completion, not completed in the ED. Face CT shows extensive facial cellulitis pattern with no dave abscess, soft tissue swelling medial to the right nasal bone and anterior to the right optic globe, no retro-orbital abscess is noted, soft tissue swelling anterior to the maxillary antrum and mandible along with right maxillary ethmoid sinus disease. In the ED, patient was given Unasyn and started developing anaphylactoid reaction, epinephrine, steroid and Benadryl was given which subsided reaction. Medicine was consulted and patient was admitted to the floors. While on the floors, pt improved with analegesics and abx. Pt was started on Levaquin IV. MRSA screen was done for patient and was positive in which we covered with IV vancomycin. Of note, pt did use cocaine last week and has had dental procedures on the same R side. It was recommended for patient to avoid all substasnces as he was having mild withdrawal sx from alcohol in patient, and also to follow up with his dentist. Pt was then discharged with the following instructions listed below. Discharge instructions: Follow-up with PCP within 1 week I am prescribing you 2 antibiotics, take as prescribed Avoid all substances including cocaine, alcohol Return to the ER if you begin to have pain with eye movements Return to ER if your symptoms worsen or return Problem List: #Preseptal cellulitis #Hypophosphatemia #Polysubstance use disorder #Alcohol use disorder #Morbid obesity #Nicotine dependence Discharge summary was reviewed with my attending Dr. Rhonda Stanton, PGY-2 Time Spent with Patient Time attestation: Total time spent providing and/or coordinating discharge services: Time spent: Greater than 30 minutes Exam Vital Signs Temp Pulse Resp BP Pulse Ox O2 Del Method O2 Flow Rate 97 F 56 L 16 138/91 H 100 Room Air 2 05/23/25 08:00 05/23/25 08:00 05/23/25 08:00 05/23/25 08:00 05/23/25 08:00 05/23/25 08:00 05/22/25 12:00 Narrative Exam GENERAL: A&OX3. No acute distress. HEENT: Normocephalic. No scleral icterus. EOMI. No periorbital erythema or swelling present at this time. CV: Regular rate and rhythm. S1 and S2 heard. No murmurs. PULM: No accessory muscle use. CTAB. No wheezing or crackles. ABDOMEN: Soft and non-distended. EXTREMITIES: No lower extremity edema. NEURO: No aphasia. No facial asymmetry. Sensation to upper and lower face present bilaterally, but slightly decreased on right forehead compared to left. Equal sensation bilaterally of upper and lower extremities. Patient able to move bilateral upper extremities, shoulders, and left lower extremity against resistance. Weakness of right lower extremity secondary to history of knee surgery, but at baseline per patient. SKIN: Warm and dry. PSYCH: Cooperative with exam. Detailed Eye Exam Visual acuity: Visual Acuity Visual Acuity Uncorrected [ 20/50 Bilateral] Visual Acuity Uncorrected [ 20/70 Right] Visual Acuity Uncorrected [ 20/70 Left] Discharge Plan Plan Patient Disposition: HOME (Self Care) Patient condition on transfer: Stable Care Plan Goals: Discharge instructions: Follow-up with PCP within 1 week I am prescribing you 2 antibiotics, take as prescribed Avoid all substances including cocaine, alcohol Return to the ER if you begin to have pain with eye movements Return to ER if your symptoms worsen or return Prescriptions/Referrals Prescriptions/Med Rec: New levofloxacin 500 mg tablet 500 mg PO QDAY 5 Days Qty: 5 0RF Rx Instructions: Take one tablet by mouth every day sulfamethoxazole-trimethoprim 800-160 mg tablet 1 tab PO Q12H 5 Days Qty: 10 0RF Rx Instructions: Take one tablet by mouth twice a day Referrals: No Primary/Family,Physician [Primary Care Provider] - Patient/Caregiver Discharge Instructions Discharge Activity: activity as tolerated Education Materials: Discharge Instructions for Cellulitis, ED Staph Skin Infection, Possible MRSA Print Language: Emirati Stand Alone Forms: Claudia Award Info., Patient Portal Info Letter Discharge Order Discharge Orders: Discharge (Routine); Ordered 05/23/25 Ordered By: Any Stanton Quality Discharge Quality Measures VTE prophylaxis
== END 2025-05-23 11:35 | disposition home or self-care (01) | DRG 383 ==
LOC: SERX 19:58 → SERHOLD 23:03 → S3NX 05-21 00:41
PROVIDERS: Physician Assistant; Admitting Provider Internal Medicine; Emergency Provider Emergency Medicine; Visit Provider Internal Medicine
DX: L03.213 Periorbital cellulitis (principal); E66.01 Morbid (severe) obesity due to excess calories; F12.90 Cannabis use, unspecified, uncomplicated; F10.10 Alcohol abuse, uncomplicated; F17.210 Nicotine dependence, cigarettes, uncomplicated; F19.10 Other psychoactive substance abuse, uncomplicated; E83.39 Other disorders of phosphorus metabolism; T88.6XXA Anaphylactic reaction due to adverse effect of correct drug or medicament properly administered, initial encounter; T36.0X5A Adverse effect of penicillins, initial encounter; Z68.37 Body mass index [BMI] 37.0-37.9, adult; Z71.6 Tobacco abuse counseling; Z88.0 Allergy status to penicillin; L03.211 Cellulitis of face
CPT/HCPCS: 36415; 70487; 80048; 80053; 80061; 80069; 80202; 80307; 82306; 83036; 83735; 84100; 85025; 85652; 86140; 87081; 93225; 96361; 96365; 96375; 99284; A4649; J0166; J0295; J1100; J1200; J1644; J1885; J1956; J2919; J3370; J3372; J3475; J3490; J7030; J7999; Q9967; A9270